=== PATIENT | male | born 1955 | race Caucasian/White ===

== ENCOUNTER 2024-06-07 10:07 | Emergency (ER) | payer MEDICARE, SELFPAY ==
--- NOTE | ~2024-06-07 | CT_ITS ---
EXAMINATION: CT brain wo con DATE: 06/07/2024 12:20 INDICATION: Vertigo. TECHNIQUE: Computed tomography (CT) of the head was performed without intravenous contrast. The mA wa s adjusted according to patient size. Iterative reconstruction technique was employed. The dose-lengt h product was 605.33 mGy-cm. COMPARISON: None FINDINGS: There are scattered areas of low attenuation in the cerebral white matter, which is within normal limits for the patient's age. There is no intracranial hemorrhage, acute infarction, or abnorm al intracranial mass lesion. The ventricles are normal in size. There is mild mucosal thickening in t he paranasal sinuses. The orbits are normal. The mastoid air cells are normal. IMPRESSION: 1. Normal aging brain. Reviewed, dictated and finalized at location B. IMPRESSION: 1. Normal aging brain.
[2024-06-07 10:19] VITALS: BP 151/80; PULSE 77; RESP 15; TEMP 36.4; O2SAT 97
[2024-06-07 10:26] VITALS: BP 151/80; PULSE 78; RESP 17; O2SAT 98
--- OUTSIDE RECORDS SUMMARY | 2024-06-07 11:40 | XMS_ITS | Data Portability ---
Author Organization [place] - S The [employer]ialist, Main Office Address [address] [place] [address] Assessment Encounter Date Assessment Date Assessment LastModified by Organization Details LastModified Time 02/01/2023 02/01/2023 This note is dictated and transcribed by [employer]. Line [employer] Supervisor variances may occur. Despite proofreading, typographical errors may occur. Not available 02/01/2023 09:03:04 04/23/2024 04/23/2024 disability papers signed for the [employer] [email or web address] Not available 04/23/2024 09:34:17 Plan of Treatment Reminders Order Date Submit Date Provider Last Modified By Organization Details Last Modified Time Details Appointments Any 15 2024 08:45A M Asher Trivedi MD Not available Not available Not available Lab PSA, total, serum or plasma 2023 024 [email or web address] [facility], [address], [place], [address], 05/24/2023 08:53:51 CBC w/ auto diff 2023 024 [email or web address] [facility], [address], [place], [address], 05/24/2023 08:53:51 CMP, serum or plasma 2023 024 [email or web address] [facility], [address], [place], [address], 05/24/2023 08:53:50 lipid panel, serum 2023 024 [email or web address] [facility], [address], [place], [address], 05/24/2023 08:53:50 lipid panel, serum 2023 024 [email or web address] [facility], [address], [place], [address], 05/24/2023 08:53:50 Referral None recorded. Procedures None recorded. Surgeries None recorded. Imaging None recorded. Medication Orders amoxicill in 500 mg capsule [address] [facility], [address] [place] [address], [address], 05/27/2024 11:53:48 Medrol (Pastor) 4 mg tablets in a dose pack [address] [facility], [address] [place] [address], [address], 05/27/2024 11:53:52 fluticaso ne propionat e 50 mcg/actua tion nasal spray,simon pension 2024 025 [facility], [address] [place] [address], [address], 04/23/2024 09:34:25 Patient TargetsNo targets recorded. Patient Instructions Encounter Date Encounter Id Patient Instructions Last Modified By Organization Details Last Modified Time 02/01/2023 [id number] [employer] Not availabl e 02/01/2023 09:03:20 Reason for Referral None Reported. Results Created Date Observation Date Name Description Value Unit Range Abnormal Flag Note LastModifiedBy Organization Detail LastModifiedTime 06/17/19 24 06/17/2023 CBC/C OMPLE TE BLD COUNT W/DIF F white blood cells 7.9 x10'3 /uL 4.2-10 .8 Not Available [facility] (Lab) [address] [facility], [place], [address], 06/17/2023 19:24:02 06/17/19 24 06/17/2023 CBC/C OMPLE TE BLD COUNT W/DIF F red blood cells 5.07 x10'6 /uL 4.10-5 .80 Not Available [facility] (Lab) [address] [place], [address], 06/17/2023 19:24:02 06/17/19 24 06/17/2023 CBC/C OMPLE TE BLD COUNT W/DIF F hemoglobin 15.4 g/dL 13.2-1 7.0 Not Available [facility] (Lab) [address] [place], [address], 06/17/2023 19:24:02 06/17/19 24 06/17/2023 CBC/C OMPLE TE BLD COUNT W/DIF F hematocrit 45.0 % 39.3-5 0.0 Not Available [facility] (Lab) [address] [place], [address], 06/17/2023 19:24:02 06/17/19 24 06/17/2023 CBC/C OMPLE TE BLD COUNT W/DIF F mean red cell volume 88.8 fL 80.0-9 7.0 Not Available [facility] (Lab) [address] [place], [address], 06/17/2023 19:24:02 06/17/19 24 06/17/2023 CBC/C OMPLE TE BLD COUNT W/DIF F mean red cell hemoglobin 30.4 pg 27.0-3 3.0 Not Available [facility] (Lab) [address] [place], [address], 06/17/2023 19:24:02 06/17/19 24 06/17/2023 CBC/C OMPLE TE BLD COUNT W/DIF F mean RBC HGB concentratio n 34.2 g/dL 31.0-3 6.0 Not Available [facility] (Lab) [address] [place], [address], 06/17/2023 19:24:02 06/17/19 24 06/17/2023 CBC/C OMPLE TE BLD COUNT W/DIF F red cell distribution width 12.7 % 11.8-1 5.5 Not Available [facility] (Lab) [address] [place], [address], 06/17/2023 19:24:02 06/17/19 24 06/17/2023 CBC/C OMPLE TE BLD COUNT W/DIF F platelets 253 x10'3 /uL 150-40 0 Not Available [facility] (Lab) [address] [place], [address], 06/17/2023 19:24:02 06/17/19 24 06/17/2023 CBC/C OMPLE TE BLD COUNT W/DIF F mean platelet volume 9.8 fL 9.0-12 .4 Not Available [facility] (Lab) [address] [place], [address], 06/17/2023 19:24:02 06/17/19 24 06/17/2023 CBC/C OMPLE TE BLD COUNT W/DIF F neutrophils 51.5 % 39.0-7 2.0 Not Available [facility] (Lab) [address] [place], [address], 06/17/2023 19:24:02 06/17/19 24 06/17/2023 CBC/C OMPLE TE BLD COUNT W/DIF F lymphocytes 37.3 % 16.0-4 7.0 Not Available [facility] (Lab) [address] [place], [address], 06/17/2023 19:24:02 06/17/19 24 06/17/2023 CBC/C OMPLE TE BLD COUNT W/DIF F monocytes 8.0 % 5.0-12 .0 Not Available [facility] (Lab) [address] [place], [address], 06/17/2023 19:24:02 06/17/19 24 06/17/2023 CBC/C OMPLE TE BLD COUNT W/DIF F eosinophils 2.3 % 1.0-7. 0 Not Available [facility] (Lab) [address] [place], [address], 06/17/2023 19:24:02 06/17/19 24 06/17/2023 CBC/C OMPLE TE BLD COUNT W/DIF F basophils 0.6 % 0.0-2. 0 Not Available [facility] (Lab) [address] [place], [address], 06/17/2023 19:24:02 06/17/19 24 06/17/2023 CBC/C OMPLE TE BLD COUNT W/DIF F immature granulocytes 0.3 % 0.00-0 .50 Not Available [facility] (Lab) [address] [place], [address], 06/17/2023 19:24:02 06/17/19 24 06/17/2023 CBC/C OMPLE TE BLD COUNT W/DIF F neutrophils, absolute count 4.04 x10'3 /uL 1.5-8. 0 Not Available [facility] (Lab) [address] [place], [address], 06/17/2023 19:24:02 06/17/19 24 06/17/2023 CBC/C OMPLE TE BLD COUNT W/DIF F lymphocytes, absolute count 2.93 x10'3 /uL 1.07-3 .43 Not Available [facility] (Lab) [address] [place], [address], 06/17/2023 19:24:02 06/17/19 24 06/17/2023 CBC/C OMPLE TE BLD COUNT W/DIF F monocytes, absolute count 0.63 x10'3 /uL 0.29-0 .99 Not Available [facility] (Lab) [address] [place], [address], 06/17/2023 19:24:02 06/17/19 24 06/17/2023 CBC/C OMPLE TE BLD COUNT W/DIF F eosinophils, absolute count 0.18 x10'3 /uL 0.02-0 .53 Not Available [facility] (Lab) [address] [place], [address], 06/17/2023 19:24:02 06/17/19 24 06/17/2023 CBC/C OMPLE TE BLD COUNT W/DIF F basophils, absolute count 0.05 x10'3 /uL 0.01-0 .08 Not Available [facility] (Lab) [address] [place], [address], 06/17/2023 19:24:02 06/17/19 24 06/17/2023 CBC/C OMPLE TE BLD COUNT W/DIF F immature granulocytes ,absolute 0.02 x10'3 /uL 0.00-0 .05 Not Available [facility] (Lab) [address] [place], [address], 06/17/2023 19:24:02 06/17/19 24 06/17/2023 CBC/C OMPLE TE BLD COUNT W/DIF F nucleated red blood cells 0.0 % -0 Not Available [facility] (Lab) [address] [place], [address], 06/17/2023 19:24:02 06/17/19 24 06/17/2023 CBC/C OMPLE TE BLD COUNT W/DIF F NRBC# 0.00 x10'3 /uL Not Available [facility] (Lab) [address] [place], [address], 06/17/2023 19:24:02 06/17/19 24 06/17/2023 COMPR EHENS ROSALVA METAB OLIC PANEL sodium 141 mmol/ L 137-14 5 Not Available [facility] (Lab) [address] [place], [address], 06/17/2023 19:52:52 06/17/19 24 06/17/2023 COMPR EHENS ROSALVA METAB OLIC PANEL potassium 4.4 mmol/ L 3.5-5. 1 Not Available [facility] (Lab) [address] [place], [address], 06/17/2023 19:52:52 06/17/19 24 06/17/2023 COMPR EHENS ROSALVA METAB OLIC PANEL chloride 106 mmol/ L 98-107 Not Available [facility] (Lab) [address] [place], [address], 06/17/2023 19:52:52 06/17/19 24 06/17/2023 COMPR EHENS ROSALVA METAB OLIC PANEL carbon dioxide 30 mmol/ L 22-30 Not Available [facility] (Lab) [address] [place], [address], 06/17/2023 19:52:52 06/17/19 24 06/17/2023 COMPR EHENS ROSALVA METAB OLIC PANEL anion gap 9.4 mmol/ L 14-22 low Not Available [facility] (Lab) [address] [place], [address], 06/17/2023 19:52:52 06/17/19 24 06/17/2023 COMPR EHENS ROSALVA METAB OLIC PANEL glucose 97 mg/dL 70-99 Not Available [facility] (Lab) [address] [place], [address], 06/17/2023 19:52:52 06/17/19 24 06/17/2023 COMPR EHENS ROSALVA METAB OLIC PANEL BUN 24 mg/dL 8-19 high Not Available [facility] (Lab) [address] [place], [address], 06/17/2023 19:52:52 06/17/19 24 06/17/2023 COMPR EHENS ROSALVA METAB OLIC PANEL creatinine 1.19 mg/dL 0.66-1 .25 Not Available [facility] (Lab) [address] [place], [address], 06/17/2023 19:52:52 06/17/19 24 06/17/2023 COMPR EHENS ROSALVA METAB OLIC PANEL GFR >60 Refer ence Range : [place] ge GFR Healt hy Adult : >60 mL/mi n/1.7 3 m2 Chron ic Kidne y Disea se: 15-60 mL/mi n/1.7 3 m2 Kidne y Failu re: <15/m L/min /1.73 m2 www.n iddk. nih.g ov The MDRD study equat ion has not been valid ated in child padmini <18 years of age; pregn ant women ; the elder ly >85 years of age; or in some racia l or ethni c subgr oups, such as Hishi nics. Outsi de the valid ated susi eters , estim ated GFR is less accur ate, requi ring clini joelle judgm ent on a case- by-ca se basis . Clini joelle inter preta tion for other races and ages must be made by the clini jacobo. The MDRD study equat ion has not been valid ated for the evalu ation of serum creat inine relat ed to nutri triston l statu s or medic ation usage . For perso ns <18 years of age, a pedia tric GFR calcu lator is avail able on the F websi te: https ://ww w.kid ro.o rg/pr ofess ional s/kdo qi/gf r_cal culat or Not Available [facility] (Lab) [address] [place], [address], 06/17/2023 19:52:52 06/17/19 24 06/17/2023 COMPR EHENS ROSALVA METAB OLIC PANEL alkaline phosphatase 78 U/L 38-126 Not Available [facility] (Lab) [address] [place], [address], 06/17/2023 19:52:52 06/17/19 24 06/17/2023 COMPR EHENS ROSALVA METAB OLIC PANEL alanine aminotransfe rase 32 U/L 0-50 Not Available [facility] (Lab) [address] [place], [address], 06/17/2023 19:52:52 06/17/19 24 06/17/2023 COMPR EHENS ROSALVA METAB OLIC PANEL aspartate aminotransfe rase 31 U/L 15-46 Not Available [facility] (Lab) [address] [place], [address], 06/17/2023 19:52:52 06/17/19 24 06/17/2023 COMPR EHENS ROSALVA METAB OLIC PANEL bilirubin, total 0.90 mg/dL 0.20-1 .30 Not Available [facility] (Lab) [address] [place], [address], 06/17/2023 19:52:52 06/17/19 24 06/17/2023 COMPR EHENS ROSALVA METAB OLIC PANEL calcium 9.1 mg/dL 8.4-10 .2 Not Available [facility] (Lab) [address] [place], [address], 06/17/2023 19:52:52 06/17/19 24 06/17/2023 COMPR EHENS ROSALVA METAB OLIC PANEL total protein 6.8 g/dL 6.3-8. 2 Not Available [facility] (Lab) [address] [place], [address], 06/17/2023 19:52:52 06/17/19 24 06/17/2023 COMPR EHENS ROSALVA METAB OLIC PANEL albumin 4.1 g/dL 3.0-4. 4 Not Available [facility] (Lab) [address] [place], [address], 06/17/2023 19:52:52 06/17/19 24 06/17/2023 COMPR EHENS ROSALVA METAB OLIC PANEL globulin 2.7 g/dL 2.6-4. 2 Not Available [facility] (Lab) [address] [place], [address], 06/17/2023 19:52:52 06/17/19 24 06/17/2023 COMPR EHENS ROSALVA METAB OLIC PANEL A/G ratio 1.5 ratio 1.0-2. 0 Not Available [facility] (Lab) [address] [place], [address], 06/17/2023 19:52:52 06/17/19 24 06/17/2023 LIPID PANEL cholesterol 118 mg/dL 140-19 9 low NIH CLAIRE NSUS RECOM MENDA TION FOR LYNN STERO L: ADULT CHILD LOW RISK: <200 <170 BORDE RLINE : <200- 239 ----- HIGH RISK: >240 >200 Not Available [facility] (Lab) [address] [place], [address], 06/17/2023 19:52:57 06/17/19 24 06/17/2023 LIPID PANEL triglyceride s 107 mg/dL 0-150 NIH CLAIRE NSUS REPOR T RECOM MENDA TION FOR TRIGL YCERI RENE: ADULT CHILD LOW RISK: <150 ----- BODER LINE: 150-1 99 ----- HIGH RISK: >200 ----- Not Available [facility] (Lab) [address] [place], [address], 06/17/2023 19:52:57 06/17/19 24 06/17/2023 LIPID PANEL HDL cholesterol 46 mg/dL 40- Not Available [facility] (Lab) [address] [place], [address], 06/17/2023 19:52:57 06/17/19 24 06/17/2023 LIPID PANEL LDL cholesterol, calculated 51 mg/dL 0-130 NIH CLAIRE NSUS REPOR T RECOM MENDA TIONS FOR LDL: ADULT CHILD LOW RISK <130 <110 (OPTI MAL LDL) <100 ----- GURPREETDE RLINE : 130-1 59 ----- HIGH RISK: >160 >130 A TRIGL YCERI DE RESUL T >400 INVAL IDATE S THE CALCU LATIO N FOR LDL FRACT IONAT ION - THE LDL RESUL T WILL NOT BE REPOR MIRTHA. Not Available [facility] (Lab) [address] [place], [address], 06/17/2023 19:52:57 06/17/1906/17/2023 PSA SCREE N PSA medicare screen 1.00 NG/mL 0.00-4 .00 Not Available [facility] (Lab) [address] [place], [address], 06/17/2023 20:09:55 Result Notes None recorded. Problems Name Problem SNOMED Code Status Onset Date Resolution Date Notes Provider Name and Address Organization Details Recorded Time Plantar wart of left foot 51586362695 194398 Completed 202206/10/2022 ASIF Kowalski, [employer] 3 14:59:03 Achilles tendiniti s 17332300 Active 2022 Not Available [facility] 3 06:43:34 Achilles tendiniti s 34199075 Completed 202206/10/2022 ASIF Kowalski, [employer] 3 14:59:24 Dizziness 882422057 Active 2022 Not Available [facility] 3 06:43:34 Chronic obstructi ve pulmonary disease 82743463 Active Not Available [facility] 3 06:43:34 Pain of right shoulder joint 66632428643 653719 Completed 202106/10/2022 Nely Hawthorne CMA null, [employer] 3 11:01:54 Tendiniti s of right rotator cuff 91050126874 981412 Active 2021 Not Available [facility] 3 06:43:34 Gastroeso phageal reflux disease 067871213 Active Not Available [facility] 3 06:43:34 Dyspnea 562071663 Completed Not Available [facility] 3 02:55:37 Cyst of skin 328802981 Completed Not Available [facility] 3 02:55:37 Discolora tion of skin 5020279 Completed Not Available [facility] 3 02:55:38 Arthritis 3281353 Active Not Available [facility] 3 06:43:34 Dizziness 504185707 Completed Asher Trivedi MD [address] [place] [address], [address] , [facility] [employer] 3 15:36:13 Coronary arteriosc lerosis 72917923 Active Not Available [facility] 3 06:43:34 Acute upper respirato ry infection 10141759 Completed 202106/10/2022 Marine temple, RMA null, [employer] [facility] 3 14:59:11 Hyperlipi demia 39261597 Active 2021 Not Available [facility] 3 06:43:34 Essential hypertens ion 25510489 Active Not Available [facility] 3 06:43:34 Sleep apnea 39574862 Active 2016 Not Available [facility] 3 06:43:34 Neck pain 53058615 Completed Not Available [facility] 3 02:55:38 Ex-smoker 1976914 Active 2016 Not Available [facility] 3 06:43:34 Lipoma 39872113 Active Not Available [facility] 3 06:43:34 Pain of right shoulder joint 12122848157 989393 Active 2022 Not Available [facility] 3 06:43:34 Partial thickness rotator cuff tear 676690144 Active 2022 Not Available [facility] 3 06:43:34 Allergic reaction to bee sting 315532157 Active 2022 Amber Austin NP [address] [address], [place], [address] , [facility] [employer] [facility] [employer] [facility] 3 15:19:40 Acute urticaria 860871794 Active 2022 Amber Austin NP [address] [facility], [address] [address], [place], [address] , [employer] [facility] 3 15:26:46 Verruca plantaris 76627602 Active 2022 Sudarshan Lopez DPM [address] [address], [place], [address] , [employer] [facility] 3 09:47:59 Sinusitis 96348634 Active 2023 Vanessa Arcos MA [facility], [employer] [facility] 4 11:41:08 Problem Notes None recorded. Procedures Surgical History Date Name Laterality Status Provider Name and Address Organization Details Recorded Time 01/14/20 23 Destruction lesion (cryo, hyfrecation, scissors or chemical) completed Sudarhsan Lopez DPM [address] [address], [place], [address], [facility] [employer] 01/13/2023 09:46:37 Cyst Removal completed Not Available [facility] 05/26/2022 02:48:31 Imaging Results None recorded. Procedure Notes None recorded. Medical Equipment None Reported. Allergies No known drug allergies Medications Name Sig Start Date Stop Date Status Note LastModified by Organization Details LastModified Time cyclobenz aprine 10 mg tablet Take 1 tablet 3 times a day by oral route as needed. active GENERIC FOR FLEXERIL Not Available Not Available Not Available amoxicill in 500 mg capsule TAKE 1 CAPSULE BY MOUTH EVERY 8 HOURS FOR 7 DAYS 05/27 completed Not Available Not Available Not Available atorvasta tin 40 mg tablet TAKE 1 TABLET BY MOUTH ONCE DAILY active Not Available Not Available No t Available prednison e 10 mg tablet Take by oral route. active 4 tabs for 3 days 3 tabs for 3 days 2 tabs for 3 days and 1 tab for 3 days Not Available Not Available Not Available azithromy sadia 250 mg tablet Take 2 TABLET EVERY DAY by oral route for 1 day. Than 1 tablet for 4 days 04/23 completed Not Available Not Available Not Available meloxicam 15 mg tablet Take 1 tablet by mouth once daily with food active Not Available Not Available No t Available naltrexon e 50 mg tablet 08/22 completed Not Available Not Available Not Available prednison e 20 mg tablet TAKE 3 TABLETS BY MOUTH FOR 3 DAYS, THEN TAKE 2 TABLETS BY MOUTH FOR 3 DAYS, THEN TAKE 1 TABLET BY MOUTH FOR 3 DAYS 12/29 completed Not Available Not Available Not Available aspirin 81 mg tablet,de layed release Take 1 tablet every day by oral route. 2014 active Not Available Not Available Not Avai lable tramadol 50 mg tablet Take 1 tablet 3 times a day by oral route. 05/17 completed Not Available Not Available Not Available bupropion HCl 100 mg tablet 08/22 completed Not Available Not Available Not Available meclizine 25 mg tablet TAKE 1 TABLET BY MOUTH THREE TIMES DAILY 07/01 completed Not Available Not Available Not Available benzonata te 100 mg capsule Take 1 capsule 3 times a day by oral route. 12/22 completed Not Available Not Available Not Available cephalexi n 500 mg capsule TAKE 1 CAPSULE BY MOUTH BY MOUTH 4 TIMES DAILY UNTIL GONE 01/08 completed Not Available Not Available Not Available omeprazol e 20 mg capsule,d elayed release Take 1 capsule by mouth once daily 2024 active Not Available Not Available Not Avai lable metoprolo l succinate ER 25 mg tablet,ex tended release 24 hr Take 1 tablet(s ) every day by oral route for 90 days. 08/22 completed Not Available Not Available Not Available lisinopri l 10 mg-hydroc hlorothia zide 12.5 mg tablet Take 1 tablet by mouth once daily 2024 active Not Available Not Available Not Avai lable methylpre dnisolone 4 mg tablets in a dose pack TAKE BY MOUTH DIRECTED ON INSIDE OF PACKAGE 05/27 completed Not Available Not Available Not Available fluticaso ne propionat e 50 mcg/actua tion nasal spray,simon pension USE 2 SPRAY(S) IN EACH NOSTRIL ONCE DAILY active Not Available Not Available No t Available amoxicill in 875 mg-potass ium clavulana te 125 mg tablet Take 1 tablet every 12 hours by oral route for 7 days. 05/17 completed Not Available Not Available Not Available Ventolin HFA 90 mcg/actua tion aerosol inhaler Inhale 2 puffs every 4 hours by inhalati on route as needed. 03/17 completed Not Available Not Available Not Available azithromy sadia 500 mg tablet Take 1 tablet every day by oral route for 5 days. active Not Available Not Available No t Available cyclobenz aprine 5 mg tablet Take 1 tablet 3 times a day by oral route. 08/22 completed Not Available Not Available Not Available Spiriva with [employer] 18 mcg and inhalatio n capsules Inhale 1 capsule every day by inhalati on route for 30 days. active Not Available Not Available No t Available Dulera 200 mcg-5 mcg/actua tion HFA aerosol inhaler Inhale 2 puffs twice a day by inhalati on route. active does not take, took for 1 month , said it didnt help Not Available Not Available Not Available Tudorza Pressair 400 mcg/actua tion breath activated Inhale 1 puff every 12 hours by inhalati on route for 90 days. active does not take, took for 1 month , said it didnt help Not Available Not Available Not Available Breyna 160 mcg-4.5 mcg/actua tion HFA aerosol inhaler Inhale 2 puffs by mouth twice daily 2024 active Not Available Not Available Not Avai lable Vitals Date Recorded Body height Body mass index (BMI) Body weight Heart rate Respiratory rate Oxygen saturation Oxygen saturation in Arterial blood by Pulse oximetry Provider Name and Address Organization Details Last Updated DateTime 3 175.26 cm 29.5 kg/m2 39143.4 7 g 78 /min 14 /min 99 % 99 % Cathy Villatoro Gino [place] [employer] [facility] 3 08:59:33 Date Recorded Body height Body mass index (BMI) Body weight Body temperature Heart rate Oxygen saturation Oxygen saturation in Arterial blood by Pulse oximetry Systolic blood pressure Diastolic blood pressure Provider Name and Address Organization Details Last Updated DateTime 4 175.26 cm 32 kg/m2 09627.5 4 g 97.8 [degF] 84 /min 98 % 98 % 130 mm[Hg] 74 mm[Hg] Marine luciano [employer] 4 09:04:54 Date Recorded Body height Body mass index (BMI) Body weight Heart rate Oxygen saturation Oxygen saturation in Arterial blood by Pulse oximetry Systolic blood pressure Diastolic blood pressure Provider Name and Address Organization Details Last Updated DateTime 4 175.26 cm 30.5 kg/m2 52122.5 4 g 74 /min 98 % 98 % 122 mm[Hg] 80 mm[Hg] Alem Murray [employer] 4 09:18:59 Date Recorded Body height Body mass index (BMI) Body weight Body temperature Heart rate Oxygen saturation Oxygen saturation in Arterial blood by Pulse oximetry Systolic blood pressure Diastolic blood pressure Provider Name and Address Organization Details Last Updated DateTime 4 175.26 cm 30.4 kg/m2 25333.0 3 g 97.4 [degF] 70 /min 97 % 97 % 130 mm[Hg] 70 mm[Hg] Marine luciano [employer] 4 09:06:58 Date Recorded Body height Body mass index (BMI) Body weight Body temperature Heart rate Oxygen saturation Oxygen saturation in Arterial blood by Pulse oximetry Systolic blood pressure Diastolic blood pressure Provider Name and Address Organization Details Last Updated DateTime 5 175.26 cm 31 kg/m2 07159.4 g 97.2 [degF] 78 /min 98 % 98 % 130 mm[Hg] 76 mm[Hg] Marine luciano [employer] 5 08:46:35 Social History Question Answer Notes LastModified by Organizat ion Details LastModified Time Tobacco Smoking Status Former Smoker Not Available [facility] 05/26/2022 02:46:54 Do You Have An Advance Directive? No [id number] Information not available 05/26/2022 What Is Your Level Of Alcohol Consumption? None [id number] Information not available 05/26/2022 Do You Wear A Helmet When Biking? No [id number] Information not available 05/26/2022 What Is Your Level Of Caffeine Consumption? Moderate [id number] Information not available 05/26/2022 What Type Of Diet Are You Following? REGULAR [id number] Information not available 05/26/2022 Do You Or Have You Ever Used E-cigarettes Or Vape? 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 No [id number] Information not available 05/26/2022 What Is The Fluoride Status Of Your Home? Fluoridated MIGRATION.45596 37492 Information not available 05/26/2022 When Did You Quit Smoking? 6-10yearssincelastc igarette Quit 2010 MIGRATION.41388 40045 Information not available 05/26/2022 Do You Use Insect Repellent Routinely? No MIGRATION.04889 57149 Information not available 05/26/2022 Where Do You Live? [place]House MIGRATION.83803 67741 Information not available 05/26/2022 What Was The Date Of Your Most Recent Tobacco Screening? 01/13/2023 [email or web address] Information not available 01/13/2023 Do You Have Any Pets? Yes MIGRATION.85421 97703 Information not available 05/26/2022 What Is Your Relationship Status? MIGRATION.30295 64539 Information not available 05/26/2022 Do You Use Your Seat Belt Or Car Seat Routinely? Yes MIGRATION.66676 35661 Information not available 05/26/2022 Do You Have Smoke And Carbon Monoxide Detectors In Your Home? Yes MIGRATION.05459 22386 Information not available 05/26/2022 At What Age Did You Start Smoking Tobacco? 18 MIGRATION.51029 82799 Information not available 05/26/2022 Are You Passively Exposed To Smoke? Yes MIGRATION.55392 38105 Information not available 05/26/2022 Are There Any Smokers In Your House? Yes MIGRATION.55746 59054 Information not available 05/26/2022 Do You Feel Stressed (tense, Restless, Nervous, Or Anxious, Or Unable To Sleep At Night)? [id number] MIGRATION.91219 73022 Information not available 05/26/2022 Do You Use Any Illicit Or Recreational Drugs? No MIGRATION.24443 76038 Information not available 05/26/2022 Do You Use Sunscreen Routinely? Yes MIGRATION.76094 62443 Information not available 05/26/2022 Has Tobacco Cessation Counseling Been Provided? No MIGRATION.38380 09909 Information not available 05/26/2022 Have You Recently Traveled Abroad? No MIGRATION.17847 46848 Information not available 05/26/2022 Do You Have Any Dietary Restrictions? No MIGRATION.40182 65957 Information not available 05/26/2022 Do You Or Have You Ever Used Any Other Forms Of Tobacco Or Nicotine? No MIGRATION.88634 74007 Information not available 05/26/2022 Sex: Male Functional Status Question Answer Note LastModified by Organizat ion Details LastModified Time What is your exercise level? Occasional [id number] Information not available 05/26/2022 Mental Status None recorded. Family History Relationship Description Onset Age of this Age Resolved Age Notes LastModified by Organization Details LastModified Time Paternal Grandfather Essential hypertension MIGRATION.207 [id number] Not available 05/26/2022 02:48:36 Father Essential hypertension MIGRATION.152 [id number] Not available 05/26/2022 02:48:36 Paternal Uncle Malignant neoplastic disease Lung MIGRATION.264 [id number] Not available 05/26/2022 02:48:36 Medical History Condition Response LUNG DISEASE/DISORDER Y HEARTBURN / REFLUX Y Immunizations Vaccine Type Date Status Note Provider Nam e and Address Organization Details Recorded Time Influenza, split virus, quadrivalent, PF 2 completed Not Available [facility] 10/10/2022 06:43:34 Influenza, split virus, quadrivalent, PF 1 completed Not Available [facility] 10/10/2022 06:43:34 Influenza, split virus, quadrivalent, PF 0 completed Not Available [facility] 10/10/2022 06:43:34 Influenza, split virus, quadrivalent, PF 8 completed Not Available [facility] 10/10/2022 06:43:34 Influenza, split virus, quadrivalent, PF 7 completed Not Available [facility] 10/10/2022 06:43:34 Influenza, split virus, quadrivalent, preservative 6 completed Not Available [facility] 10/10/2022 06:43:34 influenza, intradermal, quadrivalent, preservative free 9 completed Not Available [facility] 10/10/2022 06:43:34 Influenza, split virus, trivalent, preservative 5 completed Not Available [facility] 10/10/2022 06:43:34 Influenza, split virus, trivalent, PF 4 completed Not Available [facility] 10/10/2022 06:43:34 Influenza, high-dose, quadrivalent, PF 3 completed Asher Trivedi MD [address], [place], [address], [employer] 12/29/2022 10:36:07 Influenza, high-dose, trivalent, PF 4 completed Asher Trivedi MD [address], [place], [address], [employer] 01/09/2024 09:15:43 Past Encounters Encounter ID Performer Location Encounter Start Date Encounter Closed Date Diagnosis/Indication Diagnosis SNOMED-CT Code Diagnosis ICD10 Code Diagnosis Note [id number] [facility] [address] [place] [address] 06/16/2020 00:00:00 06/16/2020 11:47:00 [id number] [facility] [address] [place] [address] 11/04/2020 00:00:00 11/04/2020 10:37:30 [id number] [facility] [address] [place] [address] 11/24/2020 00:00:00 11/24/2020 10:18:11 [id number] [facility] [address] [place] [address] 03/17/2021 00:00:00 03/17/2021 11:26:54 [id number] [facility] [place] [address] [place] [address] 06/22/2021 00:00:00 06/22/2021 15:52:14 [id number] [facility] [address] [place] [address] 11/23/2021 00:00:00 11/23/2021 09:52:59 [id number] [facility] [address] [place] [address] 02/16/2022 00:00:00 02/16/2022 11:54:01 [id number] [facility] [address] [address] 05/20/2022 00:00:00 05/20/2022 17:15:23 [id number] Asher Trivedi MD [facility] [address] [place] [address] 06/02/2022 16:12:55 06/02/2022 16:49:43 Plantar wart of left foot [id number] 9943500 B07.0 Achilles tendinitis 1165 4001 M76.60 getting better, on meloxicam Chronic ob structive pulmonary disease 40460379 J44.9 [id number] Asher Trivedi MD [facility] [address] [place] [address] 06/10/2022 14:46:13 06/10/2022 15:43:37 Dizziness 733134788 R42 Ex-smoker 3601419 Z87.89 1 [id number] Jonel Thopmson MD [facility] [address] [address] 07/01/2022 09:50:56 07/01/2022 11:07:33 Pain of right shoulder joint [id number] 5038142 M25.511 [id number] Asher Trivedi MD [facility] [address] [place] [address] 07/01/2022 11:43:32 07/01/2022 12:53:00 Coronary arteriosclerosis 95436933 I25.10 no symptoms Essential hypertension 71274496 I10 under control Adult heal th examination 193748401 Z00.00 Colonoscop y- 12/16, nl, next in 10 yrsLDCT- 05/17/2018 , does not want any morePSA- ne umovax- NEVER- does not wantFLU- OV ID- had both moderna shots Chronic ob structive pulmonary disease 51057286 J44.9 under control Gastroesop hageal reflux disease 361634766 K21.9 meds help Sleep apnea 14351452 G47 .30 does not want any cpap Arthritis 2357619 M19.90 med help Hyperlipidemia 07927630 E78.5 labs discussed Dizziness 759870566 R42 improved, did not go for CT scan or carotid Doppler's [id number] Jonel Thompson MD [facility] [address] [address] 08/19/2022 09:04:47 08/19/2022 10:05:14 Partial thickness rotator cuff tear 628976609 M75.977 [id number] Amber Austin NP [facility] [address] [address] 12/03/2022 14:46:20 12/03/2022 16:50:08 Allergic reaction to bee sting 196972089 T63.444A local skin care; discussed medication s for cellulitis and allergic reaction. to urgent care or er if not improving Acute urticaria 56337252 9 L50.9 [id number] Asher Trivedi MD [facility] [address] [address] 12/29/2022 09:52:31 12/29/2022 10:43:37 Coronary arteriosclerosis 85793760 I25.10 no symptoms Essential hypertension 63830563 I10 under control Adult heal th examination 513275060 Z00.00 Colonoscop y- 12/16, nl, next in 10 yrs LDCT- 05/17/2018 , does not want any more PSA- 05/2021 Pneumovax- NEVER- does not want FLU- 12/29/22 COVID- had both moderna shots Chronic ob structive pulmonary disease 99008173 J44.9 under control Gastroesop hageal reflux disease 682806491 K21.9 meds help Sleep apnea 18812418 G47 .30 does not want any cpap Arthritis 0719380 M19.90 med help Hyperlipidemia 72798898 E78.5 under control Administra tion of influenza vaccine 73475279 Z23 [id number] Sudarshan Lopez DPM [facility] [place] [address] [facility], [facility] [place] [address] [place] [address] 01/13/2023 09:18:35 01/13/2023 11:15:12 Verruca plantaris 21810623 B07.0 Left heel [id number] both warts with applicatio n of salicylic acid 30%patient to apply over-the-c ounter salicylic acid daily until blistering occurs then discontinu e usepatient will continue daily wound care to prevent infection to the areas of blistermin imal weight-mitzi ring, no strenuous activities signs and symptoms of infection reviewed with the patient, if present seek medical attention immediatel yfollow-up in 1 week for continued treatment [id number] Sudarshan Lopez DPM [facility] [place] [address] [place] [address] 01/20/2023 08:48:14 01/20/2023 09:19:44 Verruca plantaris 86897640 B07.0 Left heel [id number] nue treatmenta llow skin to healrecomm end use a pumice stone to reduce callus areafollow -up 3 weeks possible repeat treatment [id number] Sudarshan Lopez DPM [facility] [place] [address] [facility], [facility] [place] [address] [place] [address] 02/01/2023 08:55:14 02/01/2023 09:10:59 Verruca plantaris 50851234 B07.0 Left heel - X2--- resolveded ucated the patient again on foot carerecomm end obtaining new shoe gear- to prevent reinfectio nfollow-up as needed [id number] Asher Trivedi MD [facility] [address] [facility] [place] [address] 04/29/2023 08:54:20 04/29/2023 09:32:11 Coronary arteriosclerosis 02349758 I25.10 no symptoms Essential hypertension 17144392 I10 under control Adult [facility] examination 587469062 Z00.00 Colonoscop y- 12/16, nl, next in 10 yrsLDCT- 05/17/2018 , does not want any morePSA- 06/14/2022 Pneumovax- NEVER- does not wantFLU- 12/29/22COV ID- had both moderna shots Chronic ob structive pulmonary disease 85866605 J44.9 under control Gastroesop hageal reflux disease 339848595 K21.9 meds help Sleep apnea 47975318 G47 .30 does not want any cpap Arthritis 3948791 M19.90 med help Hyperlipidemia 31404160 E78.5 under control Screening for malignant neoplasm of prostate 408718297 Z12.5 [id number] Asher Trivedi MD [facility] [address] [facility] [place] [address] 09/08/2023 09:15:11 09/08/2023 09:41:49 Coronary arteriosclerosis 34070203 I25.10 no symptoms Essential hypertension 18692640 I10 under control Chronic ob structive pulmonary disease 77585261 J44.9 under control Gastroesop hageal reflux disease 583090328 K21.9 meds help Sleep apnea 13920890 G47 .30 does not want any cpap Arthritis 8683118 M19.90 med help Hyperlipidemia 92688539 E78.5 under control Adult [facility] examination 347918806 Z00.00 Colonoscop y- 12/16, nl, next in 10 yrsLDCT- 06/18/22PS A- 06/14/2022 Pneumovax- NEVER- does not wantFLU- 12/29/22COV ID- had both moderna shots Stress 01128512 Z73.3 no meds needed presently [id number] Asher Trivedi MD [facility] Internal Med [facility] [address] [facility] [place] [address] 01/09/2024 08:58:14 01/09/2024 09:26:32 Coronary arteriosclerosis 70947515 I25.10 no symptoms Essential hypertension 99805270 I10 under control Chronic ob structive pulmonary disease 62986644 J44.9 under control Gastroesop hageal reflux disease 155547020 K21.9 meds help Sleep apnea 71695613 G47 .30 does not want any cpap Arthritis 0637151 M19.90 med help, taking it daily Hyperlipidemia 39480678 E78.5 under control Adult [facility] examination 700453791 Z00.00 Colonoscop y- 12/16, nl, next in 10 yrsLDCT- 06/18/22, wants to waitPSA- 06/14/2022 Pneumovax- NEVER- does not wantFLU- 12/29/22COV ID- had both moderna shots Stress 85961601 Z73.3 no meds needed Administra tion of influenza vaccine 59344455 Z23 [id number] Asher Trivedi MD [facility] [address] [place] [address] 04/23/2024 08:40:26 04/23/2024 09:34:58 Coronary arteriosclerosis 32257399 I25.10 no symptoms Essential hypertension 75124074 I10 under control Chronic ob structive pulmonary disease 23513398 J44.9 under control Gastroesop hageal reflux disease 152117334 K21.9 meds help Sleep apnea 92539935 G47 .30 does not want any cpap Arthritis 5082552 M19.90 med help, taking it daily Hyperlipidemia 88644168 E78.5 under control Adult [facility] examination 749456206 Z00.00 Colonoscop y- 12/16, nl, next in 10 yrsLDCT- 06/18/22, wants to wait- DUE, discussed againPSA- 06/17/23Pn eumovax- NEVER- does not wantFLU- 01/09/24CO VID- had both moderna shots Stress 76740134 Z73.3 no meds needed Sinusitis 63808594 J32.9 Health Concerns Section Related Observation LastModified by Organization Detai ls LastModified Time None Recorded Concern Status LastModified by Organization Details LastModified Time None Recorded Advance Directives Directive N: Payers Encounter Date Sequence Insurance Name Policy Number Policy Bear Covered Member ID Bear Member ID Guarantor Name 02/01/2023 1 [employer] [place] [id number] Osorio Ma [id number] Osorio Ma 04/29/2023 1 [facility] MEDIC[facility] [place] [id number] Osorio Ma Jr [id number] Osorio [place] 09/08/2023 1 [employer] [place] [id number] Osorio Ma Jr [id number] Osorio [place] 01/09/2024 1 [employer] [id number] Osorio aM Jr [id number] Osorio Ma 04/23/2024 1 [facility] (MEDICARE REPLACEMENT/AD VANTAGE - HMO) [id number] Osorio Ma [id number] Osorio Ma Notes Date Note Type Note Provider Name and Address Organization Details Recorded Time 02/01/2023 text/html . Patient is 67-year-old male who returns the office for follow-up on warts to the left heel area x2. Patient has completely resolve the warts. Patient denies any further pain to the area. Patient denies any other pedal complaints. Sudarshan Lopez, [facility] [address] [facility] [address], [place], [address], [facility] 02/01/2023 09:03:34 04/29/2023 text/html Doing fine, comp liant to medications, no side affects, here for follow up.*Pt is not fasting -Has gained 17lbs COPD- better with inhalers, , PFT 2017, no cough or wheezingMeds-Symbicort 160 mg-4.5 mcg BID, Ventolin 90 mcg PRN ,CAD cardiac cath 2014 with 20% stenosis, on asa, seen cardiology, Dr Castillo in the past , no symptoms,Meds- aspirin 81 mg dailyHTN- under controlMeds- Lisinopril 10 mg/HCTZ 12.5 mg dailyGERD- controlled with medsMeds- Omeprazole 20 mg dailyHypertriglyceride nicole- advised to watch diet, labs good 06/16Arthritis- has pain in lot of joints, MEDS HELPMeds- Meloxicam 15 mg dailySleep apnea-- does not want cpap or oral deviceEx- smoker- quit in 2013, smoked 3 ppd for years, LDCT 06/17 Asher Trivedi MD [address] [facility] [place] [address], [place], [address], [facility] [employer] [facility] [employer] [facility] 04/29/2023 09:27:01 09/08/2023 text/html Doing fine, comp liant to medications, no side affects, here for follow up. Just found out his girlfriend has stage 4 lung cancer, has been stressedHas lost 11. He will get tearful when talking about it COPD- better with inhalers, , PFT 2018, no cough or wheezingMeds-Symbicort 160 mg-4.5 mcg BID, Ventolin 90 mcg PRN ,CAD cardiac cath 2014 with 20% stenosis, on asa, seen cardiology, Dr Castillo in the past , no symptoms,Meds- Aspirin 81 mg dailyHTN- under controlMeds- Lisinopril 10 mg/HCTZ 12.5 mg dailyGERD- controlled with medsMeds- Omeprazole 20 mg dailyHypertriglyceride nicole- advised to watch diet, labs good 06/16Arthritis- has pain in lot of joints, MEDS HELPMeds- Meloxicam 15 mg dailySleep apnea-- does not want cpap or oral deviceEx- smoker- quit in 2013, smoked 3 ppd for years, LDCT 06/17 Asher Trivedi MD [address] [facility], [facility] [place] [address], [place], [address], [employer] 09/08/2023 09:42:13 01/09/2024 text/html Doing fine, comp liant to medications, no side affects, here for follow up.His girlfriend has stage 4 lung cancer, has been stressed COPD- better with inhalers, , PFT 2017, no cough or wheezingMeds-Symbicort 160 mg-4.5 mcg BID, Ventolin 90 mcg PRN ,CAD cardiac cath 2014 with 20% stenosis, on asa, cardiology, Dr Castillo in the past , no symptoms,Meds- Aspirin 81 mg dailyHTN- under controlMeds- Lisinopril 10 mg/HCTZ 12.5 mg dailyGERD- controlled with medsMeds- Omeprazole 20 mg dailyHypertriglyceride nicole- advised to watch diet, labs good 06/16Arthritis- has pain in lot of joints, MEDS HELPMeds- Meloxicam 15 mg dailySleep apnea-- does not want cpap or oral deviceEx- smoker- quit in 2013, smoked 3 ppd for years, LDCT 06/17 Right shoulder pain- partial tear Rotator cuff, getting better, had mri, had PT, advised to do home exercises Asher Trivedi MD [address], [place], [address], [place] [facility] [employer] 01/09/2024 09:25:42 04/23/2024 text/html Upper Respirator y SymptomsReported bypatient.Location:[facility] Quality:productive cough;colored phlegm;congested Context:no sick contacts; non-smoker Modifying Factors:OTC medication (not helping) Associated Symptoms:no shortness of breath; no wheezingNotes:No fever, post nasal drainage, sinus headache, ear clogged Doing fine, compliant to medications, no side affects, here for follow up.His girlfriend has stage 4 lung cancer, has been stressed On disability for years due to neck pain and multiple joint pains COPD- better with inhalers, , PFT 2017, no cough or wheezingMeds- Breyna inhaler, Does not use rescue inhalersCAD cardiac cath 2014 with 20% stenosis, on asa, cardiology, Dr Castillo in the past , no symptoms,Meds- Aspirin 81 mg dailyHTN- under controlMeds- Lisinopril 10 mg/HCTZ 12.5 mg dailyGERD- controlled with medsMeds- Omeprazole 20 mg dailyHypertriglyceride nicole- advised to watch diet, labs good 06/16Arthritis- has pain in lot of joints, meds helpMeds- Meloxicam 15 mg dailySleep apnea-- does not want cpap or oral deviceEx- smoker- quit in 2013, smoked 3 ppd for years, LDCT 06/17 Right shoulder pain- partial tear Rotator cuff, getting better, had mri, had PT, advised to do home exercises Asher Trivedi MD [address], [place], [address], [place] [facility] 04/23/2024 09:34:34
--- OUTSIDE RECORDS SUMMARY | 2024-06-07 11:41 | XMS_ITS | CONTINUITY OF CARE DOCUMENT ---
Author Name tommy sanders Address Unknown Organization [facility] Address [address] [place] [address] Phone [phone] Care Team Providers Care Log Rider Name Role Phone Jonathan WARNER, Jairo Unavailable Asher Trivedi MD Unavailable Asher Trivedi MD Unavailable [phone] PROBLEMS Condition Status Date Provider Notes Granulomatous lung disease active Jairo ward MD Hypertriglyceridemia active Jairo Ryan Tobacco use, quit active Jairo Castillo MD GERD active Jairo Castillo MD Hyperlipidemia; active Jairo Castillo MD Diastolic dysfunction; active Teresa Marquez [facility] COPD; active Jairo Castillo MD Dyspnea on exertion;WITH ABN L NUC WILL CATH completed - Jairo Castillo MD HTN essential;neg duplex active Teresa sin [facility] Screening active Jairo Castillo MD SLEEP APNEA; active Jairo Castillo MD Infarction, myocardial, old; 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 of AMI, inferior wall;by l v gram 14, NOT ON EKG completed - Jairo Castillo MD CAD;20% rca 14. CAROTID PLAQUING active Will Castillo MD Obesity; active Jairo Castillo MD ENCOUNTERS Date Type Provider Location Encounter Diag nosis - In-person encounter Office Visit Jairo Castillo MD [facility] Hyperlipidemia;COPD;HTN essential;neg duplexScreeningDyspnea on exertion - In-person encounter Office Visit Jairo Castillo MD [facility] Diastolic dysfunction;SLEEP APNEA;Infarction, myocardial, old;seen on cath 14 - In-person encounter Office Visit Jairo Castillo MD [facility] COPD;ScreeningSLEEP APNEA; - In-person encounter Office Visit Tanika Alejandra MD [facility] HTN essential;neg duplex - In-person encounter Office Visit Jairo Castillo MD [facility] Obesity; - In-person encounter Office Visit Jairo Castillo MD [facility] COPD;? of AMI, inferior wall;by lv gram 14, NOT ON EKG - In-person encounter Office Visit Jairo Castillo MD [facility] Obesity;Hyperlipidemia;COPD; Dyspnea on exertion;WITH ABNL NUC WILL CATHCAD;20% rca 14. CAROTID PLAQUING - In-person encounter Office Visit Jairo Castillo MD [facility] Obesity;Tobacco use, quitGERDHyperlipidemia;Diast olic dysfunction;COPD; VITAL SIGNS Date Observation Value Provider blood pressure, diastolic 70 mm[Hg] Da igor [place] blood pressure, systolic 110 mm[Hg] Dac ia [place] Body Mass Index (Ratio) 35.29 kg/m2 Kailee Castillo MD blood pressure, diastolic 80 mm[Hg] Er juan francisco Moreau blood pressure, systolic 130 mm[Hg] Penny dora Moreau oxygen saturation, oximetry 96 % Korina Moreau pulse rate 79 /min Korina Owen weight E&M 239 [lb_av] Korina Owen height E&M 69 [in_i] Korina Jeff Owen Body Mass Index (Ratio) 33.73 kg/m2 Kailee Castillo MD blood pressure, diastolic 81 mm[Hg] Vida Martin blood pressure, systolic 128 mm[Hg] Nguyen Martin oxygen saturation, oximetry 98 % Amy Martin respiratory rate E&M 20 /min SydniViki Spencerenson pulse rate 84 /min Amy Roldan nsmonica weight E&M 228.4 [lb_av] Amy Spencer enson height E&M 69 [in_i] Amy Roldan nsmonica Body Mass Index (Ratio) 34.85 kg/m2 Kailee Castillo MD blood pressure, diastolic 73 mm[Hg] Vida Martin blood pressure, systolic 116 mm[Hg] Nguyen Martin oxygen saturation, oximetry 97 % Amy Martin respiratory rate E&M 18 /min Carmine Spencerenson pulse rate 71 /min Amy Roldan nsmonica weight E&M 236 [lb_av] Amy Roldan nson height E&M 69 [in_i] Amy Roldan monica Body Mass Index (Ratio) 34.64 kg/m2 Brandon Alejandra MD blood pressure, resting Yes Sydni Martin blood pressure, diastolic, left arm 91 mm [Hg] Amy Martin blood pressure, systolic, left arm 151 mm [Hg] mAy Martin blood pressure, diastolic, right arm 80 m m[Hg] Amy Martin blood pressure, systolic, right arm 182 m m[Hg] Amy Martin blood pressure, diastolic 91 mm[Hg] Vida Martin blood pressure, systolic 151 mm[Hg] Nguyen Martin oxygen saturation, oximetry 98 % Amy Martin respiratory rate E&M 18 /min Carmine Martin pulse rate 75 /min Amy carey weight E&M 234.6 [lb_av] Amy jean-baptiste height E&M 69 [in_i] Amy Roldan nson blood pressure, diastolic 80 mm[Hg] Eliud rri Ronnie blood pressure, systolic 138 mm[Hg] Alex ri Ronnie pulse rate 70 /min Radha Ector lutzer oxygen saturation, oximetry 97 % Radha Ronnie respiratory rate E&M 16 /min Radha G fantasma Body Mass Index (Ratio) 33.37 kg/m2 Hawley i Ronnie weight E&M 226 [lb_av] Radha Ector er Body Mass Index (Ratio) 31.30 kg/m2 Anea jennifer Brown blood pressure, diastolic 78 mm[Hg] An eliris Brown blood pressure, systolic 110 mm[Hg] Ane atris Brown pulse rate 73 /min Aneatris Brown oxygen saturation, oximetry 96 % Aneatris Brown respiratory rate E&M 18 /min Aneatri s Brown weight E&M 212 [lb_av] Aneatris Brown Body Mass Index (Ratio) 31.30 kg/m2 Anea jennifer Brown blood pressure, diastolic 75 mm[Hg] An eatris Brown blood pressure, systolic 131 mm[Hg] Ane atris Brown pulse rate 82 /min Aneatris Brown oxygen saturation, oximetry 97 % Aneatris Brown respiratory rate E&M 20 /min Aneatri s Brown weight E&M 212 [lb_av] Aneatris Brown Body Mass Index (Ratio) 31.16 kg/m2 Hawley i Karynyonathan blood pressure, diastolic 80 mm[Hg] Ke rri Sammygiancarlo blood pressure, systolic 122 mm[Hg] Alex ri Ronnie pulse rate 83 /min Radha Barney kt oxygen saturation, oximetry 97 % Radha Bossyonathan respiratory rate E&M 16 /min Radha riverogiancarlo weight E&M 211 [lb_av] Radha Barney kt height E&M 69 [in_i] Radha Barney kt ALLERGIES No Known Drug Allergies RESULTS Date Observation Value Provider Reference Range Interpretation Location 4 lipoprotein, beta, serum, point, quantitative, calculated 50 mg/dL [facility] 0-99 4 very low density lipoproteins 34 mg/dL [facility] 5-40 4 HDL cholesterol, serum 37 mg/dL [facility] >39 Low 4 triglyceride, serum, random 169 mg/dL [facility] 0-149 High 4 cholesterol, serum 121 mg/dL [facility] 223-329 4512/02/0 2 pro brain natriuretic peptide 32 pg/mL [facility] 0-210 2 lipoprotein, beta, serum, point, quantitative, calculated 39 mg/dL [facility] 0-99 2 very low density lipoproteins 38 mg/dL [facility] 5-40 2 HDL cholesterol, serum 33 mg/dL [facility] >39 Low 2 triglyceride, serum, random 191 mg/dL [facility] 0-149 High 2 cholesterol, serum 110 mg/dL [facility] 172-513 2156/03/0 9 pro brain natriuretic peptide 44.2 pg/mL [facility] 0.0 - 125.0 9 urea nitrogen/creatini ne ratio, serum 14.0 [facility] - 9 Estimated Glomerular Filtration Rate (calc) 81.6 (?) [facility] 59.0 - 9 chloride, serum 99.6 mmol/L [facility] 98.0 - 107.0 9 potassium, serum 4.2 mmol/L [facility] 3.5 - 5.1 9 sodium, serum 141.0 mmol/L [facility] 136.0 - 145.0 9 creatinine, serum 1.0 mg/dL [facility] 0.7 - 1.2 9 carbon dioxide, venous blood 27.0 mmol/L [facility] 22.0 - 29.0 9 calcium, serum 9.2 mg/dL [facility] 8.6 - 10.2 9 urea nitrogen, blood 14.0 mg/dL [facility] 6.0 - 20.0 blood glucose, random 73.0 mg/dL [facility] 74.0 - 99.0 Low 1 platelet count 248 10*3/mm3 Toy Canseco 1 hematocrit, blood 41.2 % Toy Canseco 1 international normalized ratio (INR) 1.0 Toy Canseco 1 creatinine, serum 0.97 mg/dL Toy Canseco 1 potassium, serum 4.2 mmol/L Toy Canseco 1 sodium, serum 139 mmol/L Toy Canseco HISTORY OF MEDICATION USE Medication Status Instructions Dates Provider Indications Com ments ATORVASTATIN 40MG active TAKE ONE TABLET DAILY 7 Sudarshan Purdy VASCEPA 1 GM ORAL CAPSULE active two pills twice a day 4 Jairo Castillo MD NALTREXONE HCL 50 MG ORAL TABLET active 1/2 tab by mouth daily, if not effective after 1 week may increase to 1/2 tab twice daily 3 Jairo Castillo MD BUPROPION HCL 100 MG ORAL TABLET active 1 tab by mouth daily, if not effective after 1 week may increase to 1 tab twice daily 3 Jairo Castillo MD LISINOPRIL/HCTZ 1012.5 TAB active TAKE 1 TABLET DAILY 7 Sudarshan Purdy METOPROLOL SUCCINATE ER 25 MG ORAL TABLET EXTENDED RELEASE 24 HOUR completed one tab. daily - 3 Jairo Castillo MD QSYMIA 7.5-46 MG ORAL CAPSULE EXTENDED RELEASE 24 HOUR completed one tablet daily 4 - 7 Amy Martin QSYMIA 3.75-23 MG ORAL CAPSULE EXTENDED RELEASE 24 HOUR completed one tablet daily 0 - 7 Amy Martin LISINOPRIL 10 MG ORAL TABLET completed take one pill a day 0 - 7 Amy Martin *MELOXICAM 15MG active TAKE ONE TABLET DAILY WITH FOOD OR MILK , 4 Sudarshan Wallacecayla SYMBICORT 160-4.5 MCG/ACT INHALATION AEROSOL active 2 puffs twice daily Amy Martin LIPITOR 40 MG ORAL TABLET active ONE TAB. DAILY 7 Jairo Castillo MD ASPIRIN ADULT LOW DOSE 81 MG ORAL TABLET DELAYED RELEASE active One Tab By Mouth Daily 7 Jairo Castillo MD OMEPRAZOLE 20 MG ORAL TABLET DELAYED RELEASE active everyu other day 7 Jairo Castillo MD SOCIAL HISTORY Date Observation Value Provider smoking status Former smoker Ksenia Tatum social history E&M S moking History: Radha tong is a former smoker. Jairo Castillo MD smoking, year quit 2011 Korina vazquez-Brayden smoking, date started 1973 Korina Moreau smoking history, tot al pack/day 2 Korina Moreau cigarette use yes Korina Rubio smoking status Former smoker Korina Penains on-Brayden social history reviewed E&M revi ewed - no changes required Korina Moreau social history E&M S moking History: Radha tong is a former smoker. Jairo Castillo MD social history reviewed E&M revi ewed - no changes required Jairo Castillo MD smoking, year quit 2011 Amy Martin smoking, date started 1973 Ellen Martin smoking history, tot al pack/day 2 Amy Martin cigarette use yes Amy jean-baptiste smoking status Former smoker Amy Cheng quit smoking, stage quit Jairo fonseca MD social history E&M S moking History: Radha atnathen is a former smoker. Jairo Castillo MD social history reviewed E&M revi ewed - no changes required Jairo Castillo MD smoking, year quit 2011 Amy Martin smoking, date started 1974 Ellen Martin smoking history, tot al pack/day 2 Amy Martin cigarette use yes Amy jean-baptiste smoking status Former smoker Amy Cheng social history E&M S moking History: Radha tong is a former smoker. aTnika Alejandra MD social history reviewed E&M revi ewed - no changes required Tanika Alejandra MD smoking, year quit 2011 Amy Martin smoking, date started 1974 Ellen Martin smoking history, tot al pack/day 2 Amy Martin cigarette use yes Amy jean-baptiste smoking status Former smoker Amy Cheng smoking, year quit 2011 Jairo ward MD smoking, date started 1974 Jairo Castillo MD smoking history, tot al pack/day 2 Jairo Castillo MD cigarette use yes Jairo Castillo MD smoking status Former smoker Jairo harrison MD social history E&M S moking History: Radha tong is a former smoker. Jairo Castillo MD social history reviewed E&M revi ewed - no changes required Jairo Castillo MD social history reviewed E&M revi ewed - no changes required Jairo Castillo MD smoking/tobacco cess ation, patient education and counseling yes Jairo Castillo MD smoking status Former smoker Joao butts quit smoking, stage quit Jairo fonseca MD cigarette use yes Jairo Castillo MD smoking status Former smoker Jairo harrison MD smoking, year quit 2011 Jairo ward MD social history reviewed E&M yen guerrero - no changes required Jairo Castillo MD smoking, date started 1973 Jairo Castillo MD smoking history, tot al pack/day 2 Radha Ronnie FUNCTIONAL STATUS Date Observation Value Provider periodic limb movement index absent (0) Hi Gallegos MD HRA, CV Assess/Plan, Angina (inactive) Management Plan continue current therapy Jairo Castillo MD HRA, CV Assess/Plan, Angina (inactive) Management Plan continue current therapy Jairo Castillo MD HRA, CV Assess/Plan, Angina (inactive) Management Plan continue current therapy Jairo Castillo MD HRA, CV Assess/Plan, Angina (inactive) Management Plan continue current therapy Tanika Alejandra MD HRA, CV Assess/Plan, Angina (inactive) Management Plan continue current therapy Jairo Castillo MD FAMILY HISTORY Family Member Condition First Degree Blood Relative No Known Fam rebekah History INSURANCE PROVIDERS Payer name Policy type / Coverage type [place] [employer] party ID [place] [employer] Medicare [id number] ADVANCE DIRECTIVES Name Date DISCUSSED - NO DECISION MADE TREATMENT PLAN Date Name Performer Take your medication s every day as directed. Failing to take your medication properly can have a negative impact on your treatment. Please monitor your blood pressure and heart rate regularly, at least weekly. Sit quietly for 5 minutes before taking your blood pressure and heart rate. Recommend a healthy diet plan which would include lots of vegetables and fruits, poultry and fish, low fat dairy products. It would include lower quantities of carbohydrates, like breads, potatoes, rice and pasta. Only small amounts of sweets should be included. Recommend a low salt, or no added salt diet. Exercise of at least 3 times a week is recommended. Even small amounts of exercise regularly can be less intimidating but still beneficial. Please contact us if you have new Chest Pain, Shortness of Breath, Palpitations, Dizziness, or Edema. Teresa Alma Cardiology:does not watn srugery , will take pills Jairo Castillo MD Cardiology:nml psa Jairo Castillo MD Cardiology:nml por Jairo Castillo MD Cardiology Jairo Castillo MD Cardiology: c ant where mask, did not want night time 02, does not want denteis Jairo Castillo MD Cardiology:The patie nt is between 55-77 years old and has smoked at least 30 pack years. The patient is either a current smoker or has quit within the past 15 years. T he patient is recommended to have low dose CT scan for lung cancer screening. Has been counseled regarding the importance of tobacco cessation and abstinence. Shared decision making during this office visit included discussion of the benefits and harms of screening, possible future recommendations of follow-up diagnostic testing, and total amount of radiation exposure. The patient was recommended to have annual low dose CT scan for lung cancer screening and is willing to undergo diagnosis and treatment.' Jairo Castillo MD Cardiology: H is updated medication list for this problem includes: Lipitor 40 Mg Oral Tablet (Atorvastatin calcium) ..... One tab. daily C HOL: 110 (04/29/2017) HDL: 33 (04/29/2017) Jairo Castillo MD Cardiology: d eos not want nuc stress Jairo Castillo MD Cardiology:will duplex, takes 3 drugs to contrAOl Jairo Castillo MD Cardiology Jairo Castillo MD Cardiology Jairo Castillo MD Cardiology Jairo Castillo MD Cardiology:deos not want stress test Jairo Castillo MD Cardiology:nml pro Jairo Castillo MD Cardiology:nml pro Jairo Castillo MD Cardiology:Your deisy ent has a Category 1 level of evidence and consensus according NCCN guidelines. All screening and follow-up chest CT scans should be performed at low dose (100?120 kVp and 40?60 mAs or less), unless evaluating mediastinal abnormalities or lymph nodes, where standard-dose CT with IV contrast might be appropriate. There should be a systematic process for appropriate follow-up. I n candidates for screening, shared patient/physician decision making is recommended, including a discussion of benefits/risks. Shared decision-making aids may assist in determining if screening should be performed. B efore screening, the patient will have been counseled regarding the importance of tobacco cessation and abstinence. Shared decision making during this office visit included discussion of the benefits and harms of screening, possible future recommendations of follow-up diagnostic testing, and total amount of radiation exposure. The patient was recommended to have annual low dose CT scan for lung cancer screening and is willing to undergo diagnosis and treatment moving forward. S ession Summary: & #13;Q: How old is the patient? A: Between 50-74 Q: What is the patient's history of smoking? A: Greater than 30 pack-year history of smoking Q: Has your patient been significantly exposed to elevated levels of radon? A: No Q: Has your patient been significantly exposed to diesel fumes, asbestos, coal smoke, soot, silica, cadmium, arsenic, beryllium, chromium, nickel? A: Yes Q: Does your patient have a history of lung cancer, lymphomas, cancers of the head and neck, or smoking-related cancers? A: No Q: Does your patient have a history of lung cancer in first-degree relatives? A: No Q: Does your patient have a history of COPD or pulmonary fibrosis? A: Yes Jairo Castillo MD Cardiology:cant wher e mask, will give night time 02, does not want denteis Jairo Castillo MD Cardiology:many sx will martinez Allison Castillo MD Cardiology:stress august Jairo Castillo MD Cardiology:nml psa Jairo Castillo MD Cardiology: H is updated medication list for this problem includes: Lipitor 40 Mg Tabs (Atorvastatin calcium) ..... One tab. daily Jairo Castillo MD Cardiology: H is updated medication list for this problem includes: Lipitor 40 Mg Tabs (Atorvastatin calcium) ..... One tab. daily Orders: 9 9215 HIGH Complex (CPT-93077) Tanika Alejandra MD Cardiology: O rders: 9 9215 HIGH Complex (CPT-60652) Tanika Alejandra MD Cardiology Tanika Alejandra MD Cardiology:Add lisin opril-hctz. BP is uncontrolled. T he following medications were removed from the medication list: Lisinopril 10 Mg Oral Tabs (Lisinopril) ..... Take one pill a day & #13;His updated medication list for this problem includes: Lisinopril-hydrochlorothiazide 10-12.5 Mg Tabs (Lisinopril-hydrochlorothiazide) ..... One tab. daily Metoprolol Succinate 25 Mg Tb24 (Metoprolol succinate) ..... One tab. daily Aspirin 81 Mg Tabs (Aspirin) ..... One tab. daily Tanika Alejandra MD Cardiology Follow up Jairo cortes MD Cardiology Follow up : H is updated medication list for this problem includes: Omeprazole 20 Mg Tbec (Omeprazole) ..... Take one pill a day Jairo Castillo MD Cardiology Follow up : H is updated medication list for this problem includes: Lisinopril 10 Mg Oral Tabs (Lisinopril) ..... Take one pill a day Aspirin 81 Mg Tabs (Aspirin) ..... One tab. daily Jairo Castillo MD Cardiology Follow up : H is updated medication list for this problem includes: Symbicort 160-4.5 Mcg/act Aero (Budesonide-formoterol fumarate) ..... 1 puff twice daily Jairo Castillo MD Cardiology Follow up :will try q usmsia Jairo Castillo MD Cardiology Follow up : H is updated medication list for this problem includes: Lipitor 40 Mg Tabs (Atorvastatin calcium) ..... One tab. daily Jairo Castillo MD hos follow up Jairo Castillo MD hos follow up Jairo Castillo MD hos follow up Jairo Castillo MD New Patient ;[facility] NO ROOT OR RENALS: O rders: X -Ray, Chest, PA & Lateral (CPT-67794) F ull PFT (*) C ardiac Cath - L/R - GC (*) Jairo Castillo MD New Patient ;[facility] NO ROOT OR RENALS: O rders: X -Ray, Chest, PA & Lateral (CPT-68327) F ull PFT (*) C ardiac Cath - L/R - GC (*) Jairo Castillo MD New Patient ;[facility] NO ROOT OR RENALS: O rders: X -Ray, Chest, PA & Lateral (CPT-97451) F ull PFT (*) C ardiac Cath - L/R - GC (*) Jairo Castillo MD Date Name Stress Routine CT, Coronary Calcium Score LIPID PANEL DLCO - 86706 FRC - 26900 FVC - [address] LIPID PANEL Renal Artery Duplex PROBNP, N TERMINAL Low Dose Lung CT CT, Coronary Calcium Score Complete Echo DLCO - 34702 FRC - 84926 FVC - 15216 Sleep Study Home DLCO - 92246 FRC - 49646 FVC - 40950 PROBNP, N TERMINAL BASIC METABOLIC PANE L W/EGFR STR - Routine PROBNP, N TERMINAL STR - Routine DLCO Order - 10011 FRC Order - [id number] FVC Order - 53656 Cardiac Cath - L/R - GC Full PFT X-Ray, Chest, PA & L ateral HISTORY OF PROCEDURES Procedure Date Procedure Name Provider Procedure Notes S tatus Stress EKG Hi Gallegos MD complete d CT- Coronary CA score Jairo Castillo MD completed Counseling LDCT Jairo Castillo MD com pleted FVC / MVV with bronchodilator - 09252 Jairo Castillo MD completed FRC - 34539 Jairo Castillo MD complet ed SpO2 - 64946 Jairo Castillo MD comple kenyatta DLCO - 01578 Jairo Castillo MD comple kenyatta Counseling LDCT Jairo Castillo MD com pleted EKG Jairo Castillo MD complete d SNOMED-CT: 127281709 057300 Current Medications Documented Jairo Castillo MD completed SNOMED-CT: 598968763 870019 Current Medications Documented Jairo Castillo MD completed EKG Tanika Alejandra MD completed SNOMED-CT: 001479734 548531 Current Medications Documented Tanika Alejandra MD completed EKG Jairo Castillo MD complete d SNOMED-CT: 238112173 519882 Current Medications Documented Jairo Castillo MD completed BLOOD COUNT HEMOGLOBIN Jairo Castillo MD completed
--- NOTE | 2024-06-07 12:03 | ECG_ITS ---
Test Date: 2024-06-07 12:35:35 Measurements Intervals [place] Rate: 61 P: 63 AK: 157 QRS: 41 QRSD: 103 T: 50 QT: 395 QTc: 400 Interpretive Statements SINUS RHYTHM No previous ECG available for comparison Electronically Signed On 06-08-2024 16:38:57 CDT by Neftali Gloria M.D.
[2024-06-07 12:39] VITALS: BP 143/79; PULSE 67; PULSE 68; RESP 18; O2SAT 99
--- NOTE | 2024-06-07 12:39 | ED.DIZZY ---
HPI - Dizziness General Chief Complaint: Dizziness Stated Complaint: woke up with head spinnin states not vertigo Time Seen by Provider: 06/07/24 12:02 History of Present Illness HPI Narrative: 68-year-old male presenting to the emergency department for evaluation of headache and vertiginous symptoms. Patient states he was otherwise in his normal state of health but has been having headache on off for last several weeks associated with some mild vertigo. Patient states the headache is not new for him and he occasion gets vertiginous in the morning. Does not take any prescription medications for this. He called his regular doctor who told him to go the ER for head CT. Patient denies any nauseous, vomiting, vision changes, neck pain, fever, chills. No chest pain shortness a breath. He was otherwise in his normal state of health. No ataxia or antalgic gait. Ambulatory here in the emergency department. Did not take any medications prior to arrival. No sick symptoms such as URI coughing sneezing or runny nose. Related Data Allergies Allergy/AdvReac Type Severity Reaction Status Date / Time No Known Allergies Allergy Verified 06/07/24 10:08 Review of Systems Review of Systems: As reviewed above in HPI [facility] Family History Family History Mother Cerebrovascular accident, Onset Age: 49 Other Diabetes mellitus Family history of arthritis Social History Social History Smoking status: Former smoker Smoking end date: 03/28/10 Alcohol intake: never Exam Narrative: GENERAL: [Well-appearing, well-nourished, and in no acute distress.] HEAD: [Normocephalic, atraumatic.] EYES: [PERRLA and EOMI.] ENT: Nares clear, no rhinorrhea or epistaxis. Mucous membranes moist. NECK: Supple. CHEST: [Clear to auscultation. No respiratory distress.] HEART: [Regular rate and rhythm]. No murmur heard. [Normal peripheral pulses.] ABDOMEN: [Soft, nondistended], [nontender], [No rigidity or guarding] EXTREMITIES: Normal range of motion. [No edema.] SKIN: Warm, dry, no rash. NEURO: [No focal deficits]. Alert and oriented [x3.] PSYCH: [Normal mood and affect.] Course Vital Signs Vital signs: Vital Signs Temperature 36.4 C L 06/07/24 10:19 Pulse Rate 77 06/07/24 10:19 Respiratory Rate 15 06/07/24 10:19 Blood Pressure 151/80 H 06/07/24 10:19 Pulse Oximetry 97 06/07/24 10:19 Oxygen Delivery Room Air 06/07/24 10:19 Temperature 36.4 C L 06/07/24 10:19 Pulse Rate 64 06/07/24 13:37 Respiratory Rate 16 06/07/24 13:37 Blood Pressure 129/74 06/07/24 13:37 Pulse Oximetry 99 06/07/24 13:37 Oxygen Delivery Room Air 06/07/24 10:19 MDM - Dizziness MDM Narrative Medical decision making narrative: 68-year-old male with history of hypertension otherwise healthy, presenting to the ER for evaluation of headache and some mild vertigo. Patient states he has been having some headache on off for last few weeks without response to Tylenol and he has also been having vertigo in the morning. Denies any head injury or trauma. No nausea or vomiting, no vision changes. No neck pain. No signs of meningitis or neurological deficit on his examination. Blood pressure 151/80, no severe hypertension, no tachycardia, fever, hypoxia. He is otherwise well-appearing not any acute distress. Considerations presently for a tension headache, migraine headache, upper respiratory infection, dehydration, electrolyte imbalance, low suspicion cardiac dysrhythmia or ACS, less likely intracranial pathology such as stroke given the duration of symptoms and his lack of neurological dysfunction. Workup was ordered including a CBC, CMP, EKG,, troponin, head CT. He was given a fluid bolus, Toradol and meclizine after negative head CT. 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 Workup shows no leukocytosis or anemia. Normal platelet count. Electrolytes within normal limits, normal renal function panel, unremarkable hepatic function panel. Negative troponin. Head CT shows no acute findings. EKG shows normal sinus rhythm. Patient re-evaluated with improvement in his headache and he is safe and stable for discharge home at this time. Referral back to his PCP and return precautions provided. Medical Records Attestation: I reviewed the patient's medical records. Lab Data Attestation: I reviewed the patient's lab results. 06/07/24 12:45 06/07/24 12:45 Labs: Lab Results 06/07/24 Range/Units 12:45 WBC 9.0 (4.5-10.0) K/mm3 RBC 5.07 (4.6-6.20) M/mm3 Hgb 15.1 (14.0-18.0) g/dL Hct 44.7 (42.0-52.0) % MCV 88.2 (80-100) fl MCH 29.8 (26-34) pg MCHC 33.8 (32-36) g/dl RDW 12.6 (11.5-14.5) % Plt Count 225 (150-375) k/mm3 MPV 8.9 (7.4-10.4) fl Immature Gran % (Auto) 0.3 (0-0.5) % Neut % (Auto) 67.9 (45.5-73.1) % Lymph % (Auto) 22.9 (18.3-44.2) % Atlantic % (Auto) 7.6 (2.6-8.5) % Eos % (Auto) 0.7 (0-4.4) % Baso % (Auto) 0.6 (0.2-1.2) % Lymph # (Auto) 2.07 (0.9-3.2) K/mm3 Atlantic # (Auto) 0.7 H (0.1-0.6) K/mm3 Eos # (Auto) 0.1 (0-0.3) K/mm3 Baso # (Auto) 0.1 (0.0-0.1) K/mm3 Abs Immat Gran (auto) 0.03 (0.00-0.031) K/mm3 Absolute Neuts (auto) 6.1 (1.3-6.7) K/mm3 Absolute Nucleated RBC 0.000 (0.0-0.012) K/mm3 Nucleated RBC % 0.0 (0.0-0.2) % Sodium 139 (137-145) mmol/L Potassium 4.1 (3.4-5.0) mmol/L Chloride 103 (98-107) mmol/L Carbon Dioxide 30 (22-30) mmol/L Anion Gap 6 (4-12) mmol/L BUN 19 (9-20) mg/dL Creatinine 1.04 (0.7-1.3) mg/dL Estim Creat Clear Calc 72 ml/min Estimated GFR > 60 (59 - ) Glucose 97 (65-110) mg/dL Calcium 8.8 (8.4-10.2) mg/dL Total Bilirubin 1.5 H (0.2-1.3) mg/dL AST 27 (17-59) U/L ALT 37 (6-50) U/L Alkaline Phosphatase 80 (38-126) U/L Troponin I < 0.012 (0.000-0.034) ng/mL Total Protein 7.0 (6.3-8.2) g/dL Albumin 4.1 (3.5-5.1) g/dL Imaging Data Attestation: I personally reviewed and interpreted this imaging study as follows: My impression: Impressions Head CT 06/07/24 12:21 IMPRESSION: 1. Normal aging brain. ECG Data EKG #1: Attestation: I personally reviewed and interpreted this ECG as follows: ECG completion date: 06/07/24 ECG completion time: 12:35 Prior ECG tracings: not available for review Interpretation: No ST segment elevations, depressions or inversions. Regular rate rhythm an axis. QTC 400, QRS 103, SD 157. Rate of 61 beats per minute. Normal sinus rhythm, no previous EKG for comparison in the EMR. Discharge Plan Discharge Clinical Impression: Headache, Vertigo Patient Disposition: Home, Self-Care Condition: Stable Instructions: Antibiotic Form, Vertigo (ED), Dizziness (ED) Additional Instructions: Your CT scan and cardiac workup were unremarkable. Follow-up with regular doctor. Take Tylenol and [id number] medications for headache. Return with any new or worsening concerns at any time. Patient Language: Maori Follow-up/Referrals: Shikha,Asher Justice MD [Primary Care Provider] - Time of Disposition: 14:30
[2024-06-07] MEDS: LACTATED RINGERS 1,000 ML 999 ML IV CONT (12:50)
[2024-06-07] MEDS: KETOROLAC 15 MG/ML VIAL (*BKC) IV PUSH (12:50)
[2024-06-07] MEDS: MECLIZINE HCL 25 MG TABLET PO (12:51)
[2024-06-07 13:01] LABS: Basophils Absolute Auto 0.1 K/mm3 (0.0-0.1); Basophils Percent Auto 0.6 % (0.2-1.2); Eosinophils Absolute Auto 0.1 K/mm3 (0-0.3); Eosinophils Percent Auto 0.7 % (0-4.4); Hematocrit 44.7 % (42.0-52.0); Hemoglobin 15.1 g/dL (14.0-18.0); Immature Granulocyte Absolute 0.03 K/mm3 (0.00-0.031); Immature Granulocyte Percent A 0.3 % (0-0.5); Lymphocytes Absolute Auto 2.07 K/mm3 (0.9-3.2); Lymphocytes Percent Auto 22.9 % (18.3-44.2); Mean Corpuscular HGB Conc 33.8 g/dl (32-36); Mean Corpuscular Hemoglobin 29.8 pg (26-34); Mean Corpuscular Volume 88.2 fl (80-100); Mean Platelet Volume 8.9 fl (7.4-10.4); Monocytes Absolute Auto 0.7 K/mm3 (0.1-0.6); Monocytes Percent Auto 7.6 % (2.6-8.5); Neutrophils Absolute Auto 6.1 K/mm3 (1.3-6.7); Neutrophils Percent Auto 67.9 % (45.5-73.1); Platelet Count Result 225 k/mm3 (150-375); Red Blood Count 5.07 M/mm3 (4.6-6.20); Red Cell Distribution Width 12.6 % (11.5-14.5)
[2024-06-07 13:14] LABS: Potassium 4.1 mmol/L (3.4-5.0)
[2024-06-07 13:27] LABS: Troponin I < 0.012 ng/mL (0.000-0.034)
[2024-06-07 13:33] LABS: Alanine Aminotransferase 37 U/L (6-50); Albumin Level 4.1 g/dL (3.5-5.1); Alkaline Phosphatase 80 U/L (38-126); Anion Gap 6 mmol/L (4-12); Aspartate Amino Transferase 27 U/L (17-59); Bilirubin,Total 1.5 mg/dL (0.2-1.3); Blood Urea Nitrogen 19 mg/dL (9-20); Calcium 8.8 mg/dL (8.4-10.2); Carbon Dioxide 30 mmol/L (22-30); Chloride 103 mmol/L (98-107); Estimated CRCL calculation 72 ml/min; Estimated Glomerular Filt Rate > 60; Glucose 97 mg/dL (65-110); Sodium 139 mmol/L (137-145)
[2024-06-07 13:37] VITALS: BP 129/74; PULSE 64; RESP 16; O2SAT 99
--- OUTSIDE RECORDS SUMMARY | 2024-06-07 14:24 | XMS_ITS | CONTINUITY OF CARE DOCUMENT ---
Author Name tommy sanders Address Unknown Organization [facility] Address [address] [place] [address] Phone [phone] Care Team Providers Care Public Health Assistant Name Role Phone Jonathan WARNER, Jairo Unavailable Asher Trivedi MD Unavailable Asher Trivedi MD Unavailable PROBLEMS Condition Status Date Provider Notes Granulomatous lung disease active Jairo ward MD Hypertriglyceridemia active Jairo Ryan Dyspnea on exertion completed - Jairo Castillo MD Infarction, myocardial, old; seen on cath 14 active Jairo Csatillo MD SLEEP APNEA; active Jairo Castillo MD Screening active Jairo Castillo MD HTN essential;neg duplex active Teresa sin CCM ? of AMI, inferior wall;by l v gram 14, NOT ON EKG completed - Jairo Castillo MD CAD;20% rca 14. CAROTID PLAQUING active Will Castillo MD Dyspnea on exertion;WITH ABN L NUC WILL CATH completed - Jairo Castillo MD COPD; active Jairo Castillo MD Diastolic dysfunction; active Teresa Marquez [facility] Hyperlipidemia; active Jairo Castillo MD GERD active Jairo Castillo MD Tobacco use, quit active Jairo Castillo MD Obesity; active Jairo Castillo MD ENCOUNTERS Date Type Provider Location Encounter Diag nosis - In-person encounter Office Visit Jairo Castillo MD [facility] Hyperlipidemia;COPD;HTN essential;neg duplexScreeningDyspnea on exertion - In-person encounter Office Visit Jairo Castillo MD [facility] Diastolic dysfunction;SLEEP APNEA;Infarction, myocardial, old;seen on cath 14 - In-person encounter Office Visit Jairo Castillo MD [place] [facility] COPD;ScreeningSLEEP APNEA; - In-person encounter Office Visit Tanika Alejandra MD [place] [facility] HTN essential;neg duplex - In-person encounter Office Visit Jairo Castillo MD [facility] Obesity; - In-person encounter Office Visit Jairo Castillo MD [facility] [facility] COPD;? of AMI, inferior wall;by lv gram 14, NOT ON EKG - In-person encounter Office Visit Jairo Castillo MD [facility] Obesity;Hyperlipidemia;COPD; Dyspnea on exertion;WITH ABNL NUC WILL CATHCAD;20% rca 14. CAROTID PLAQUING - In-person encounter Office Visit Jairo Castillo MD [facility] Obesity;Tobacco use, quitGERDHyperlipidemia;Diast olic dysfunction;COPD; VITAL SIGNS Date Observation Value Provider blood pressure, diastolic 70 mm[Hg] Da igor Paisley blood pressure, systolic 110 mm[Hg] Dac ia Paisley Body Mass Index (Ratio) 35.29 kg/m2 Kailee [...] pressure, systolic, left arm 151 mm [Hg] Amy Martin blood pressure, diastolic, right arm 80 m m[Hg] Amy Martin blood pressure, systolic, right arm 182 m m[Hg] Amy Martin blood pressure, diastolic 91 mm[Hg] Vida Martin blood pressure, systolic 151 mm[Hg] Nguyen Martin oxygen saturation, oximetry 98 % Aym Martin respiratory rate E&M 18 /min Carmine [...] High 4 cholesterol, serum 121 mg/dL [employer] [id number] 9587/02/0 2 pro brain natriuretic peptide 32 pg/mL [employer] 0-210 2 lipoprotein, beta, serum, point, quantitative, calculated 39 mg/dL [employer] 0-99 2 very low density lipoproteins 38 mg/dL [employer] 5-40 2 HDL cholesterol, serum 33 mg/dL [employer] >39 Low 2 triglyceride, serum, random 191 mg/dL [employer] 0-149 High 2 cholesterol, serum 110 mg/dL [employer] 535-204 3561/03/0 9 pro brain natriuretic peptide 44.2 pg/mL [...] Toy Canseco 1 potassium, serum 4.2 mmol/L oTy Canseco 1 sodium, serum 139 mmol/L Toy [...] History: Radha tong is a former smoker. Tanika Alejandra MD social history reviewed E&M revi [...] Payer name Policy type / Coverage type [place] [employer] ID [place] MED[employer] Medicare [id number] ADVANCE DIRECTIVES Name Date DISCUSSED - NO [...] MD Cardiology:nml pro Jairo Castillo MD Cardiology:Your deiys ent has a Category 1 level of [...] tab. daily Orders: 9 9215 HIGH Complex (CPT-22424) Tanika Alejandra MD Cardiology: O rders: 9 9215 HIGH Complex (CPT-26921) Tanika Alejandra MD Cardiology Tanika Alejandra MD [...] rders: X -Ray, Chest, PA & Lateral (CPT-52880) F ull PFT (*) C ardiac Cath - L/R - GC (*) Jairo Castillo MD New Patient ;[facility] [place] NO ROOT OR RENALS: O rders: X -Ray, Chest, PA & Lateral (CPT-46440) F ull PFT (*) C ardiac Cath - L/R - GC (*) Jairo Castillo MD New Patient ;[facility] [place] NO ROOT OR RENALS: O rders: X -Ray, Chest, PA & Lateral (CPT-86674) F ull PFT (*) C ardiac Cath - L/R - GC (*) Jairo Castillo MD Date Name Stress Routine CT, Coronary Calcium Score LIPID PANEL DLCO - 24540 FRC - 70351 FVC - [address] LIPID PANEL Renal Artery Duplex PROBNP, N TERMINAL Low Dose Lung CT CT, Coronary Calcium Score Complete Echo DLCO - 86368 FRC - 87877 FVC - 08219 Sleep Study Home DLCO - 89873 FRC - 90783 FVC - 18987 PROBNP, N TERMINAL BASIC METABOLIC PANE L W/EGFR STR - Routine PROBNP, N TERMINAL STR - Routine DLCO Order - 52423 FRC Order - 69991 FVC Order - 29114 Cardiac Cath - L/R - GC Full PFT X-Ray, Chest, PA & L ateral HISTORY OF PROCEDURES Procedure Date Procedure Name Provider Procedure Notes S tatus Stress EKG Hi Gallegos MD complete d CT- Coronary CA score Jairo Castillo MD completed Counseling LDCT Jairo Castillo MD com pleted FVC / MVV with bronchodilator - 09121 Jairo Castillo MD completed FRC - 30502 Jairo Castillo MD complet ed SpO2 - 11007 Jairo Castillo MD comple kenyatta DLCO - 75773 Jairo Castillo MD comple kenyatta Counseling LDCT Jairo Castillo MD com pleted EKG Jairo Castillo MD complete d SNOMED-CT: 121923228 002387 Current Medications Documented Jairo Castillo MD completed SNOMED-CT: 240921251 973484 Current Medications Documented Jairo Castillo MD completed EKG Tanika Alejandra MD completed SNOMED-CT: 695569723 161115 Current Medications Documented Tanika Alejandra MD completed EKG Jairo Castillo MD complete d SNOMED-CT: 476202696 142093 Current Medications Documented Jairo Castillo MD completed BLOOD COUNT HEMOGLOBIN Jairo Castillo MD completed
[2024-06-07 14:39] VITALS: BP 113/80; PULSE 62; RESP 20; TEMP 36.5; O2SAT 98
== END 2024-06-07 14:41 | disposition home or self-care (01) ==
PROVIDERS: Emergency Provider Student in an Organized Health Care Education/Training Program; PCP Internal Medicine
DX: R51.9 Headache, unspecified (principal); R42 Dizziness and giddiness; Z87.891 Personal history of nicotine dependence
CPT/HCPCS: 36415; 70450; 80053; 84484; 85025; 93005; 96361; 96374; 99284; A9270; J1885; J7120